=== PATIENT | male | born 1965 | race African-American/Black ===

== ENCOUNTER 2016-03-30 01:18 | Emergency (ER) | payer OTHER ==
[~2016-03-30] VITALS: Ht 167.6 cm; Wt 90.7 kg
[~2016-03-30 01:18] MED LIST: AMLODIPINE10 MG PO; ATORVASTATIN CA10 MG PO; MOTRIN 600 MG600 MG PO; Theragran Vitamins PO
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
[2016-03-30 02:03] LABS: ABSOLUTE BASOPHIL COUNT 0.1 /CUMM (0.0-0.2); ABSOLUTE EOSINOPHIL COUNT 0.1 /CUMM (0.0-0.7); ABSOLUTE GRANULOCYTE CT 3.8 /CUMM (1.4-6.5); ABSOLUTE LYMPH COUNT 3.2 /CUMM (1.2-3.4); ABSOLUTE MONOCYTE COUNT 0.3 /CUMM (0.10-0.60); EOSINOPHIL % 1.3 % (0-5); GRANULOCYTE % 50.5 % (42.2-75.2); HEMATOCRIT 43.4 % (42-52); MEAN CORPUSCULAR HGB 32.2 PG (27.0-31.0); MEAN CORPUSCULAR VOLUME 94.9 FL (80.0-94.0); PLATELET COUNT 274 /CUMM (130-400); RBC DISTRIBUTION WIDTH 12.6 % (11.5-14.5); RED BLOOD CELL CT 4.58 /CUMM (4.70-6.10); WHITE BLOOD CELL COUNT 7.6 /CUMM (4.8-10.8)
[2016-03-30 06:35] VITALS: BP 104/53
== END 2016-03-30 07:22 ==
LOC: ERH 01:18
PROVIDERS: Emergency Medicine
DX: F10.129 Alcohol abuse with intoxication, unspecified (principal)
CPT/HCPCS: 80307; G0480

== ENCOUNTER 2016-06-21 16:13 | Emergency (ER) | payer OTHER ==
[~2016-06-21] VITALS: Ht 172.7 cm; Wt 104.3 kg
[2016-06-21] MEDS ORDERED: ATORVASTATIN CA10 M1 PO (18:12)
[2016-06-21] MEDS ORDERED: AMLODIPINE BESY10 M1 PO (18:12)
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
--- NOTE | 2016-06-21 19:26 | RADIOLOGY REPORT ---
EXAMINATION: XR RIBS, RIGHT CLINICAL INFORMATION: Trauma COMPARISON: Chest x-ray 08/23/2012 TECHNIQUE: Single view of the chest and for detailed views of the right ribs. FINDINGS: There is no pneumothorax or effusion. Lung granger are comparable to previous. Cannot exclude nodular density in the left upper lung. 5 mm. Detailed views of the right ribs demonstrate a fracture the 10th rib and also possibly the ninth rib. IMPRESSION: Fractures of the 10th and possibly ninth rib on the right. No underlying pneumothorax or effusion. Question of a 5 mm nodule left upper lung. CT of the chest is recommended. This may be done on an outpatient basis.
[2016-06-21] MEDS ORDERED: KETOROLAC TROME10 M1 PO (19:56)
[2016-06-21] MEDS ORDERED: PERCOCET 5-3251 EACH PO (19:56)
[2016-06-21 20:29] VITALS: BP 118/74
== END 2016-06-21 20:29 ==
LOC: ERH 16:13
DX: S22.31XA Fracture of one rib, right side, initial encounter for closed fracture (principal); M25.552 Pain in left hip; W19.XXXA Unspecified fall, initial encounter; Y93.89 Activity, other specified; Y92.9 Unspecified place or not applicable
CPT/HCPCS: 71100-RT; 73502-LT; 96372; J1885